=== PATIENT | female | born 1965 | race Caucasian/White ===

== ENCOUNTER 2018-05-23 09:03 | Emergency (ER) | payer SELFPAY ==
[2018-05-23 09:24] VITALS: RESP 28; TEMP 98.2
--- NOTE | 2018-05-23 09:51 | C.PDOC ---
History Of Present Illness 52 y/o female brought to ED by EMS. As per EMS, called for concern for pt with severe EtOH intoxication. Pt has history of alcohol abuse, history of prior intubation for EtOH. Notes she is drinking because of son's . Denies other drug use. History limited due to clinical condition. LIMITED DUE TO CLIN COND PER EMS, CALLED FOR CONCERN FOR PT SEVERE ETOH INTOX. HO ETOH ABUSE, HO PRIOR INTUBATION FOR ETOH. PS DRINKING BC OF SON'S . DENIES OTHER DRUG USE ROS LIMITED EXAM NONTOXIC MOD INTOX HEENT ATRAUM; AOB EXT L FOOT CAM BOOT; R KNEE OLD BRUISING NO SWELL, DEFORM SKIN INTACT PSYCH +GROSS INTOX CALM COOPERATIVE NO SI/SA REMAINDER NEG ([place]) History Per: Patient History/Exam Limitations: clinical condition Time Seen by Provider: 05/23/18 09:27 Chief Complaint (Nursing): Substance Abuse Past Medical History Reviewed: Historical Data, Nursing Documentation, Vital Signs - Medical History PMH: Denies: Diabetes, Hepatitis, HIV, HTN, Seizures, Sexually Transmitted Disease Family History: States: Unknown Family Hx - Social History Hx Tobacco Use: Yes Hx Alcohol Use: Yes Hx Substance Use: No - Immunization History Hx Tetanus Toxoid Vaccination: No Hx Influenza Vaccination: No Hx Pneumococcal Vaccination: No Vital Signs: Last Vital Signs Temp 98.2 F 05/23/18 09:16 Pulse 72 05/23/18 11:37 Resp 28 H 05/23/18 09:16 BP 106/72 05/23/18 11:37 Pulse Ox 100 05/23/18 12:52 Review Of Systems Review Of Systems: ROS cannot be obtained secondary to pt's inabilty to answer questions. (limited) Physical Exam - Physical Exam Appears: Non-toxic, Other (Moderate intoxication) Skin: Normal Color, Warm, Dry Head: Atraumatic, Normacephalic Eye(s): bilateral: Normal Inspection Nose: Normal Oral Mucosa: Moist, Other (AOB) Neck: Normal ROM, Supple Cardiovascular: Rhythm Regular Respiratory: Normal Breath Sounds, No Rales, No Rhonchi, No Wheezing Gastrointestinal/Abdominal: Soft, No Tenderness Extremity: Capillary Refill (less than 2 seconds), No Deformity, No Swelling, Other (old bruising to right knee; CAM boot to left foot) Neurological/Psych: Oriented x3, Other ((+)gross intoxication, calm, cooperative , no SI/SA) ED Course And Treatment O2 Sat by Pulse Oximetry: 100 (RA) Pulse Ox Interpretation: Normal Progress - Data Reviewed Data Reviewed: Old records - Re-Evaluation Re-evaluation Note: 05/23/18 09:48 @ BEDSIDE: STATES PS BINGE DRINKS TRIGGERED BY ANNIVERSARY OF SON'S (2014). CURRENT BINGE X 3 WEEKS. STATES CONCERN PT REQUIRE INTUBATION "LIKE LAST TIME". WITNESSED PT LAST DRINK THIS MORNING. PT AMBUL TO BATHROOM WO DIFF, AWAKE INTERACTIVE VSS. D/W CRISIS, NO DETOX BEDS AVAIL. FAMILY ADVISED WILL MONITOR PT, IVF, REEVAL FOR SOBRIETY. FAMILY AGREES W PLAN 05/23/18 12:26 PT W INCREASED AGITATION, REFUSING TO STAY IN BED. PT INFLICTED INJURIES ON 2 RNS, FAILING VERBAL INTERVENTION. PERSIST INTOX. RESTRAINTS, ATIVAN GIVEN FOR PT AND STAFF SAFETY. ([place] Castaneda) Medical Decision Making Medical Decision Making: Plan: Glucose check (Angeles Castaneda) Disposition Counseled Patient/Family Regarding: Diagnosis - Disposition Disposition Time: 13:00 - POA Present On Arrival: None - Disposition Condition: STABLE Forms: [employer] (Monegasque) - Clinical Impression Clinical Impression: Alcohol intoxication - Scribe Statement The provider has reviewed the documentation as recorded by the Scribe - Scribe Statement KP All medical record entries made by the Scribe were at my direction and personally dictated by me. I have reviewed the chart and agree that the record accurately reflects my personal performance of the history, physical exam, medical decision making, and the department course for this patient. I have also personally directed, reviewed, and agree with the discharge instructions and disposition. (Angeles Castaneda) Physician Patient Turnover Patient Signed Over To: Mana Lisa Handoff Comments: FU SOBRIETY, DISPO Addendum Addendum: 05/23/18 13:43 Patient sitting up in bed, comfortable, chatting with 1:1 sitter. Pending sobriety. (Mana Lisa)
[2018-05-23 11:38] VITALS: BP 106/72; PULSE 72
[2018-05-23 12:27] VITALS: O2SAT 100
== END 2018-05-23 17:00 | disposition home or self-care (01) ==
LOC: C.ER 09:03
DX: F10.129 Alcohol abuse with intoxication, unspecified (principal); Y90.9 Presence of alcohol in blood, level not specified
CPT/HCPCS: 82948; 96374; 99284; J2060